=== PATIENT | male | born 1950 | race Caucasian/White ===

== ENCOUNTER 2018-04-27 08:10 | Emergency (ER) | payer MEDICARE, BC ==
[2018-04-27 08:23] VITALS: BP 122/81
--- NOTE | 2018-04-27 09:24 | UC ---
Rianna Hdez Julia, scribed for Jeffery Zabala MD on 04/27/18 at 0825 . Ear Complaint HPI - HPI Summary HPI Summary: A 59 year old M presents to [facility] with a chief complaint of decreased hearing secondary to wax build up for the past week, worse on the right than the left. Denies ear pain. - History of Current Complaint Chief Complaint: UCEar Stated Complaint: EARS CLOGGED Time Seen by Provider: 04/27/18 08:15 Hx Obtained From: Patient Onset/Duration: Lasting Weeks Pain Intensity: 0 Pain Scale Used: 0-10 Numeric Associated Signs/Symptoms: Positive: Hearing Loss - Allergies/Home Medications Allergies/Adverse Reactions: Allergies Allergy/AdvReac Type Severity Reaction Status Date / Time No Known Allergies Allergy Verified 04/27/18 08:23 Home Medications: Home Medications Allopurinol 100 mg PO DAILY 04/27/18 [History Confirmed 04/27/18] Aspirin 81 mg CHEW TAB* 81 mg PO DAILY 04/27/18 [History Confirmed 04/27/18] Rosuvastatin Calcium 5 mg PO DAILY 04/27/18 [History Confirmed 04/27/18] PMH/Surg Hx/FS Hx/Imm Hx Previously Healthy: Yes - spinal stenosis - Surgical History Surgical History: Yes Surgery Procedure, Year, and Place: back surgery for spinal stenosis 2010 - Family History Known Family History: Positive: Hypertension - Social History Alcohol Use: Occasionally Substance Use Type: None Smoking Status (MU): Never Smoked Tobacco Review of Systems Constitutional: Negative ENT: Ear Ache - cerumen build up, negative ear pain All Other Systems Reviewed And Are Negative: Yes Physical Exam - Summary Physical Exam Summary: VITAL SIGNS: Reviewed. GENERAL: Patient is a well-developed and nourished male who is lying comfortable in the stretcher. Patient is not in any acute respiratory distress. HEAD AND FACE: Normocephalic EYES: PERRLA, EOMI x 2. EARS: Cerumen in right ear, left ear is normal. Hearing grossly intact. MOUTH: Oropharynx within normal limits. NECK: Supple, trachea is midline, no adenopathy, no JVD, no carotid bruit. CHEST: Symmetric, no tenderness at palpation LUNGS: Clear to auscultation bilaterally. No wheezing or crackles. CVS: Regular rate and rhythm, S1 and S2 present, no murmurs or gallops appreciated. ABDOMEN: Soft, non-tender. Bowel sounds are normal. No abdominal abnormal pulsations. EXTREMITIES: Full ROM in all major joints, no edema, no cyanosis or clubbing. NEURO: Alert and oriented x 3. No acute neurological deficits. Speech is normal and follows commands. SKIN: Dry and warm Triage Information Reviewed: Yes Vital Signs: Initial Vital Signs Temp 97.5 F 04/27/18 08:20 Pulse 76 04/27/18 08:20 Resp 16 04/27/18 08:20 BP 122/81 04/27/18 08:20 Pulse Ox 100 04/27/18 08:20 Vital Signs Reviewed: Yes Ear Complaint Course/Dx - Course Course Of Treatment: Ear was was removed. the patient reports feeling better. No signs of infection. Discharged home with follow with PCP. - Differential Dx/Diagnosis Provider Diagnoses: Wax removal Discharge - Sign-Out/Discharge Documenting (check all that apply): Discharge/Admit/Transfer - Discharge Plan Condition: Stable Disposition: HOME Patient Education Materials: Cerumen Impaction (ED) Referrals: Maninder Church MD [Primary Care Provider] - Additional Instructions: Increase your fluid intake Return to the if symptoms worsen - Billing Disposition and Condition Condition: STABLE Disposition: Home The documentation as recorded by the Rianna mccormick Julia accurately reflects the service I personally performed and the decisions made by , Jeffery Zabala MD.
== END 2018-04-27 09:30 | disposition home or self-care (01) ==
LOC: UCEAST 08:10
DX: H61.23 Impacted cerumen, bilateral (principal); Z79.82 Long term (current) use of aspirin
CPT/HCPCS: 99212; G0463